=== PATIENT | male | born 1960 | race Caucasian/White ===

== ENCOUNTER 2017-08-04 11:44 | Day surgery (SDC) | payer BC ==
[~2017-08-04] VITALS: Ht 180.3 cm; Wt 91.7 kg
[~2017-08-04 11:44] MED LIST: BUPIVACAINE/PF 0.5% ONE; FENTANYL PF 100 MCG/2ML ONE; MIDAZOLAM 1 MG/ML, 2ML ONE; PROPOFOL 10 MG/ML, 20ML ONE; ROCURONIUM 10 MG/ML,10ML ONE
[2017-08-04] MEDS ORDERED: CEFAZOLIN 1,000 MG ONE ×2 (11:45)
[2017-08-04] MEDS ORDERED: NEOSTIGMINE 1 MG/ML, 10ML ONE (11:45)
[2017-08-04] MEDS ORDERED: GLYCOPYRROLATE 0.2MG/1ML, 5ML ONE (11:45)
[2017-08-04] MEDS ORDERED: LIDOCAINE 1%, 2ML ONE (12:21)
[2017-08-04 12:25] VITALS: BP 118/75
[2017-08-04] MEDS ORDERED: LABETALOL 5MG/ML, 20ML IV PRN (12:30)
[2017-08-04] MEDS ORDERED: OXYcodone 5 MG/5 ML ORAL.SOL UDC PO PRN ×2 (12:30→13:30)
[2017-08-04] MEDS ORDERED: ACETAMINOPHEN 325 MG TABLET PO PRN (12:30)
[2017-08-04] MEDS ORDERED: HYDROmorphone 1 MG/ML, 1ML IV PRN (12:30)
[2017-08-04] MEDS ORDERED: MEPERIDINE/PF 25MG/0.5ML IVPush PRN (12:30)
[2017-08-04] MEDS ORDERED: ONDANSETRON 2MG/ML, 2ML IVPush PRN ×2 (12:30→13:30)
[2017-08-04] MEDS ORDERED: FENTANYL PF 100 MCG/2ML IV PRN (12:30)
[2017-08-04] MEDS ORDERED: PROMETHAZINE 25 MG/ML, 1ML IV PRN (12:30)
[2017-08-04] MEDS ORDERED: hydrALAzine 20 MG/ML, 1ML IV PRN (12:30)
[2017-08-04] MEDS ORDERED: FLOMAX PO (12:36)
[2017-08-04] MEDS ORDERED: LACTATED RINGERS 1,000 ML IV SCH (12:36)
[2017-08-04] MEDS ORDERED: ROCURONIUM 10 MG/ML,10ML ONE (12:41)
[2017-08-04] MEDS ORDERED: KETOROLAC 30 MG/1 ML ONE (12:57)
[2017-08-04] MEDS ORDERED: LIDOCAINE 1%, 2ML SQ PRN (13:00)
[2017-08-04] MEDS ORDERED: BUPIVACAINE/PF-EPI 0.5% 1:200K IM ONE (13:10)
[2017-08-04] MEDS ORDERED: DIPHENHYDRAMINE 50 MG/ML, 1ML IVPush PRN (13:30)
[2017-08-04] MEDS ORDERED: HYDROmorphone 2 MG/ML, 1ML IVPush PRN (13:30)
[2017-08-04] MEDS ORDERED: OXYcodone 5 MG/5 ML ORAL.SOL UDC ONE (14:03)
== END 2017-08-04 17:15 | disposition home or self-care (01) ==
LOC: OUT 11:44
PROVIDERS: ATTEND Surgery
DX: K40.90 Unilateral inguinal hernia, without obstruction or gangrene, not specified as recurrent (principal); D17.6 Benign lipomatous neoplasm of spermatic cord; Z72.89 Other problems related to lifestyle
CPT/HCPCS: 49650; C1781; J0690; J1885; J2250; J2704; J2710; J3010; J3490; J7120; S2900